=== PATIENT | male | born 1970 | race Caucasian/White ===

== ENCOUNTER 2023-06-07 09:52 | Emergency (ER) | payer BC ==
[~2023-06-07] VITALS: Ht 175.3 cm; Wt 84.1 kg
[2023-06-07] MEDS ORDERED: CIPR250T6 PO (10:04)
[2023-06-07] MEDS ORDERED: CLIN300C58 PO (10:04)
[2023-06-07] MEDS ORDERED: SERT-158 PO (10:05)
[2023-06-07] MEDS ORDERED: METO50 PO (10:05)
[2023-06-07 10:10] VITALS: TEMP 97.8
[2023-06-07] MEDS ORDERED: PRED-554 PO (12:52)
[2023-06-07 13:00] VITALS: BP 137/69; PULSE 68; RESP 14
[2023-06-07] MEDS: CLOTRIMAZOLE 1% 15 GM CREAM TP ONE (13:07)
[2023-06-07] MEDS: PredniSONE 20 MG TABLET PO ONE (13:07)
== END 2023-06-07 13:16 | disposition home or self-care (01) ==
LOC: EMS 09:56
DX: B35.9 Dermatophytosis, unspecified (principal); I10 Essential (primary) hypertension; Z88.0 Allergy status to penicillin
CPT/HCPCS: 99283; J7512